=== PATIENT | male | born 1945 | race African-American/Black ===

== ENCOUNTER 2019-10-11 08:05 | Observation (INO) ==
[2019-10-11 10:08] LABS: Basophils % 0.3 % (0.0-0.8); Eosinophils % 0.4 % (0.00-10.9); Hematocrit 34.8 VOL% (42.0-52.0); Hemoglobin 10.9 GM/DL (14.0-18.0); Immature Granulocytes % 0.4 %; Immature Granulocytes Absolute 0.03 #; Lymphocytes # 0.6 10*3/uL (1.4-4.0); Lymphocytes % 9.5 % (21.2-54.2); Mean Corpuscular HGB Conc 31.3 GM/DL (32-36); Mean Corpuscular Volume 100.3 FL (87-102); Mean Platelet Volume 10.8 FL (9.6-12.0); Neutrophils % 71.4 % (38.7-73.9); Platelet Count 281 T/CUMM (130-400); Red Blood Count 3.47 MC/CUMM (3.8-5.5); Red Cell Distribution Width 15.7 % (9.3-17.3); White Blood Count 6.7 T/CUMM (4-12)
[2019-10-11 10:28] LABS: Eosinophils 1 % (0-10); Hypochromasia 1+; Lymphocytes 9 % (20-55); Ovalocytes Slight; Platelet Estimate Adequate; Segmented Neutrophils 77 % (50-85); Total Cells Counted 100
[2019-10-11 10:29] LABS: Bilirubin,Total 0.9 MG/DL (0.2-1.0); Osmolality,Calculated 298.4 MOS/KG (273-304); Total Protein 7.1 G/DL (6.4-8.3)
[2019-10-11] MEDS ORDERED: PROMETHAZINE 25 MG/1 ML VIAL IM PRN (13:15)
[2019-10-11] MEDS ORDERED: ONDANSETRON 4 MG/2 ML VIAL IV PRN (13:15)
[2019-10-11] MEDS ORDERED: ACETAMINOPHEN 325 MG TABLET PO PRN (13:15)
[2019-10-11] MEDS ORDERED: LEVOFLOXACIN INJ 750 MG in PREMIX 1 EACH IV ONE (13:30)
[2019-10-11] MEDS ORDERED: traZODone 50 MG TABLET PO PRN (16:37)
[2019-10-11] MEDS ORDERED: POLYETHYLENE GLYCOL POWDER 17 GM PACK PO PRN (16:37)
[2019-10-11] MEDS: CALCIUM ACETATE 667 MG CAPSULE PO SCH (17:05)
[2019-10-11] MEDS: ALBUTEROL/IPRATROPIUM 3 ML NEB RESP TX SCH (19:32)
[2019-10-11] MEDS: ISOSORBIDE MONONITRATE 30 MG TABLET PO SCH (21:05)
[2019-10-11] MEDS: carvediloL 6.25 MG TABLET PO SCH (21:06)
[2019-10-12] MEDS: ALBUTEROL/IPRATROPIUM 3 ML NEB RESP TX SCH ×2 (01:00→07:30)
[2019-10-12 05:30] LABS: Basophils % 0.3 % (0.0-0.8); Eosinophils % 0.3 % (0.00-10.9); Hematocrit 33.9 VOL% (42.0-52.0); Hemoglobin 10.6 GM/DL (14.0-18.0); Immature Granulocytes % 0.6 %; Immature Granulocytes Absolute 0.04 #; Lymphocytes # 0.6 10*3/uL (1.4-4.0); Lymphocytes % 9.3 % (21.2-54.2); Mean Corpuscular HGB Conc 31.3 GM/DL (32-36); Mean Corpuscular Volume 100.3 FL (87-102); Mean Platelet Volume 11.3 FL (9.6-12.0); Monocytes % 16.5 % (1.7-12.7); Platelet Count 296 T/CUMM (130-400); Red Blood Count 3.38 MC/CUMM (3.8-5.5); Red Cell Distribution Width 15.7 % (9.3-17.3); White Blood Count 6.8 T/CUMM (4-12)
[2019-10-12 05:57] LABS: Albumin 1.9 G/DL (3.4-5.0); Calcium 8.2 MG/DL (8.5-10.1); Osmolality,Calculated 298.5 MOS/KG (273-304); Risk Ratio 2.73; Total Protein 7.1 G/DL (6.4-8.3); VLDL CHOLESTEROL 15.4 MG/DL
[2019-10-12 06:11] LABS: Eosinophils 1 % (0-10); Lymphocytes 12 % (20-55); Metamyelocytes 1 %; Segmented Neutrophils 68 % (50-85); Total Cells Counted 100
[2019-10-12 06:13] LABS: Hypochromasia 2+; Platelet Estimate Normal
[2019-10-12 06:14] LABS: Target Cells Few
[2019-10-12] MEDS: CALCIUM ACETATE 667 MG CAPSULE PO SCH ×2 (08:00→12:54)
[2019-10-12] MEDS ORDERED: ASPIRIN EC 81 MG TABLET PO SCH (09:00)
[2019-10-12] MEDS ORDERED: FENOFIBRATE 48 MG TABLET PO SCH (09:00)
[2019-10-12] MEDS ORDERED: COLCHICINE 0.6 MG CAPSULE PO SCH (09:00)
[2019-10-12] MEDS ORDERED: RANITIDINE 150 MG TABLET PO SCH (09:00)
[2019-10-12] MEDS ORDERED: MULTIVITAMIN (CENTRUM) TABLET PO SCH (09:00)
[2019-10-12] MEDS ORDERED: PANTOPRAZOLE 40 MG TABLET PO SCH (09:00)
[2019-10-12] MEDS ORDERED: FLUTICASONE 50 MCG NASAL SPRAY 16 GM BOTTLE BOTH NARES SCH (09:00)
[2019-10-12] MEDS: ISOSORBIDE MONONITRATE 30 MG TABLET PO SCH (12:56)
[2019-10-12] MEDS: carvediloL 6.25 MG TABLET PO SCH (12:56)
[2019-10-12 13:20] VITALS: BP 95/51
[2019-10-13] MEDS ORDERED: CLOPIDOGREL 75 MG TABLET PO SCH (09:00)
[2019-10-13] MEDS ORDERED: LEVOFLOXACIN INJ 500 MG in PREMIX 1 EACH IV SCH (14:00)
== END 2019-10-12 15:58 | disposition home or self-care (01) ==
LOC: N.EDINP 08:05 → N.ED 08:05 → N.2W 14:50
PROVIDERS: ADMIT Hospitalist; ATTEND Hospitalist

== ENCOUNTER 2019-10-18 10:32 | Observation (INO) ==
[2019-10-18 11:52] LABS: Basophils % 0.4 % (0.0-0.8); Eosinophils % 0.4 % (0.00-10.9); Immature Granulocytes % 0.4 %; Immature Granulocytes Absolute 0.02 #; Lymphocytes # 0.5 10*3/uL (1.4-4.0); Lymphocytes % 9.2 % (21.2-54.2); Mean Corpuscular HGB Conc 31.6 GM/DL (32-36); Mean Corpuscular Volume 97.9 FL (87-102); Mean Platelet Volume 11.3 FL (9.6-12.0); Neutrophils % 71.6 % (38.7-73.9); Platelet Count 223 T/CUMM (130-400); Red Blood Count 3.88 MC/CUMM (3.8-5.5); Red Cell Distribution Width 15.3 % (9.3-17.3); White Blood Count 5.5 T/CUMM (4-12)
[2019-10-18 12:03] LABS: INR 1.4; PT Patient Result 14.9 SECS (9.6-12.2); Partial Thromboplastin Time 36.7 SECS (20.8-36.0)
[2019-10-18 12:14] LABS: Alanine Aminotransferase 19 U/L (16-61); Albumin 1.9 G/DL (3.4-5.0); Alkaline Phosphatase 81 U/L (45-117); Amylase 104 U/L (25-115); Aspartate Amino Transferase 42 U/L (0-37); Blood Urea Nitrogen 63 MG/DL (7-18); Calcium 7.8 MG/DL (8.5-10.1); Estimated Glom Filtration Rate 6 ML/MIN; Glucose 66 MG/DL (74-106); Total Protein 7.3 G/DL (6.4-8.3); Troponin I < 0.015 NG/ML (0.00-0.045)
[2019-10-18 12:54] LABS: Platelet Estimate Adequate
[2019-10-18] MEDS ORDERED: DOCUSATE SODIUM 100 MG CAPSULE PO PRN (12:57)
[2019-10-18] MEDS ORDERED: ACETAMINOPHEN 325 MG TABLET PO PRN (12:57)
[2019-10-18 14:17] LABS: INR 1.4; PT Patient Result 14.9 SECS (9.6-12.2)
[2019-10-18] MEDS ORDERED: traZODone 50 MG TABLET PO PRN (15:17)
[2019-10-18] MEDS ORDERED: SODIUM POLYSTYRENE SULFATE 15 GM/60 ML BOTTLE PO STA (16:07)
[2019-10-18] MEDS: CALCIUM ACETATE 667 MG CAPSULE PO SCH (16:57)
[2019-10-18 17:02] LABS: Basophils % 0.3 % (0.0-0.8); Eosinophils % 0.5 % (0.00-10.9); Hemoglobin 10.5 GM/DL (14.0-18.0); Immature Granulocytes % 0.3 %; Immature Granulocytes Absolute 0.02 #; Lymphocytes # 0.6 10*3/uL (1.4-4.0); Lymphocytes % 10.8 % (21.2-54.2); Mean Corpuscular HGB Conc 30.9 GM/DL (32-36); Mean Corpuscular Volume 100.9 FL (87-102); Monocytes % 20.6 % (1.7-12.7); Neutrophils % 67.5 % (38.7-73.9); Platelet Count 227 T/CUMM (130-400); Red Blood Count 3.37 MC/CUMM (3.8-5.5); Red Cell Distribution Width 15.1 % (9.3-17.3); White Blood Count 5.9 T/CUMM (4-12)
[2019-10-18 17:41] LABS: Lymphocytes 14 % (20-55); Platelet Estimate Adequate; Segmented Neutrophils 69 % (50-85); Total Cells Counted 100
[2019-10-18] MEDS: ISOSORBIDE MONONITRATE 30 MG TABLET PO SCH (21:15)
[2019-10-18] MEDS: carvediloL 6.25 MG TABLET PO SCH (21:15)
[2019-10-19 05:06] VITALS: BP 97/59
[2019-10-19 05:47] LABS: Calcium 7.5 MG/DL (8.5-10.1); Osmolality,Calculated 295.7 MOS/KG (273-304)
[2019-10-19] MEDS ORDERED: MULTIVITAMIN (CENTRUM) TABLET PO SCH (09:00)
[2019-10-19] MEDS ORDERED: RANITIDINE 150 MG TABLET PO SCH (09:00)
[2019-10-19] MEDS ORDERED: PANTOPRAZOLE 40 MG TABLET PO SCH (09:00)
[2019-10-19] MEDS ORDERED: ASPIRIN EC 81 MG TABLET PO SCH (09:00)
[2019-10-19] MEDS ORDERED: POLYETHYLENE GLYCOL POWDER 17 GM PACK PO PRN (09:00)
[2019-10-19] MEDS ORDERED: FLUTICASONE 50 MCG NASAL SPRAY 16 GM BOTTLE BOTH NARES SCH (09:00)
[2019-10-19] MEDS ORDERED: COLCHICINE 0.6 MG CAPSULE PO SCH (09:00)
[2019-10-19] MEDS ORDERED: NON-FORMULARY MEDICATION (Fenofibrate 54 MG) PO SCH (09:00)
[2019-10-19] MEDS: CALCIUM ACETATE 667 MG CAPSULE PO SCH ×2 (09:42→12:15)
[2019-10-19] MEDS ORDERED: CLOPIDOGREL 75 MG TABLET PO SCH (15:17)
[2019-10-19] MEDS: carvediloL 6.25 MG TABLET PO SCH (16:09)
[2019-10-19] MEDS: ISOSORBIDE MONONITRATE 30 MG TABLET PO SCH (16:10)
== END 2019-10-19 16:10 | disposition home or self-care (01) ==
LOC: N.EDINP 10:32 → N.ED 10:32 → N.5E 13:14
PROVIDERS: ADMIT Hospitalist; ATTEND Hospitalist

== ENCOUNTER 2019-11-05 16:21 | Inpatient (IN) ==
[2019-11-05 17:26] LABS: Basophils % 0.1 % (0.0-0.8); Eosinophils # 0.1 10*3/uL (0.0-0.87); Eosinophils % 0.8 % (0.00-10.9); Hemoglobin 10.5 GM/DL (14.0-18.0); Immature Granulocytes % 0.4 %; Immature Granulocytes Absolute 0.03 #; Lymphocytes # 0.6 10*3/uL (1.4-4.0); Lymphocytes % 7.8 % (21.2-54.2); Mean Corpuscular HGB Conc 30.9 GM/DL (32-36); Mean Corpuscular Volume 99.1 FL (87-102); Mean Platelet Volume 10.9 FL (9.6-12.0); Monocytes % 17.5 % (1.7-12.7); Neutrophils % 73.4 % (38.7-73.9); Platelet Count 272 T/CUMM (130-400); Red Blood Count 3.43 MC/CUMM (3.8-5.5); Red Cell Distribution Width 14.8 % (9.3-17.3); White Blood Count 7.3 T/CUMM (4-12)
[2019-11-05 17:35] LABS: INR 1.3; PT Patient Result 13.7 SECS (9.6-12.2); Partial Thromboplastin Time 41.1 SECS (20.8-36.0)
[2019-11-05 18:08] LABS: Albumin 2.1 G/DL (3.4-5.0); Calcium 7.9 MG/DL (8.5-10.1); Osmolality,Calculated 284.2 MOS/KG (273-304); Total Protein 7.3 G/DL (6.4-8.3)
[2019-11-05 19:38] LABS: Hypochromasia 2+; Lymphocytes 7 % (20-55); Platelet Estimate Normal; Segmented Neutrophils 78 % (50-85); Total Cells Counted 100
[2019-11-05 19:39] LABS: Anisocytosis 2+; Macrocytosis 2+; Ovalocytes 1+; Poikilocytosis 1+; Polychromasia 1+
[2019-11-05] MEDS ORDERED: POLYETHYLENE GLYCOL POWDER 17 GM PACK PO PRN (19:54)
[2019-11-05 20:13] LABS: Basophils % 0.2 % (0.0-0.8); Eosinophils % 0.6 % (0.00-10.9); Hemoglobin 10.8 GM/DL (14.0-18.0); Immature Granulocytes % 0.5 %; Immature Granulocytes Absolute 0.03 #; Lymphocytes # 0.5 10*3/uL (1.4-4.0); Lymphocytes % 7.7 % (21.2-54.2); Mean Corpuscular HGB Conc 30.9 GM/DL (32-36); Mean Corpuscular Volume 99.4 FL (87-102); Mean Platelet Volume 10.8 FL (9.6-12.0); Monocytes % 18.5 % (1.7-12.7); Neutrophils % 72.5 % (38.7-73.9); Platelet Count 230 T/CUMM (130-400); Red Blood Count 3.52 MC/CUMM (3.8-5.5); Red Cell Distribution Width 14.9 % (9.3-17.3); White Blood Count 6.3 T/CUMM (4-12)
[2019-11-05] MEDS: ISOSORBIDE MONONITRATE 30 MG TABLET PO SCH (20:26)
[2019-11-05] MEDS: carvediloL 6.25 MG TABLET PO SCH (20:26)
[2019-11-05] MEDS: traZODone 50 MG TABLET PO PRN (20:26)
[2019-11-05 21:31] LABS: Lymphocytes 11 % (20-55); Segmented Neutrophils 78 % (50-85); Total Cells Counted 100
[2019-11-05 21:32] LABS: Hypochromasia 2+; Macrocytosis 2+; Platelet Estimate Normal
[2019-11-05 21:33] LABS: Anisocytosis Slight; Ovalocytes Few; Polychromasia 1+; Schistocytes Few
[2019-11-05 21:34] LABS: Toxic Granulation 1+
[2019-11-06 08:02] LABS: INR 1.3; PT Patient Result 14.1 SECS (9.6-12.2)
[2019-11-06] MEDS: BUDESONIDE/FORMOTEROL 160-4.5 INHALER 6 GM INH SCH (08:25)
[2019-11-06] MEDS: FLUTICASONE 50 MCG NASAL SPRAY 16 GM BOTTLE BOTH NARES SCH (08:25)
[2019-11-06] MEDS: ASPIRIN EC 81 MG TABLET PO SCH (08:26)
[2019-11-06] MEDS: CALCIUM ACETATE 667 MG CAPSULE PO SCH ×3 (08:26→18:23)
[2019-11-06] MEDS: RANITIDINE 150 MG TABLET PO SCH (08:26)
[2019-11-06] MEDS: carvediloL 6.25 MG TABLET PO SCH (08:26)
[2019-11-06] MEDS: ISOSORBIDE MONONITRATE 30 MG TABLET PO SCH (08:26)
[2019-11-06] MEDS: COLCHICINE 0.6 MG CAPSULE PO SCH (08:26)
[2019-11-06] MEDS: MULTIVITAMIN (CENTRUM) TABLET PO SCH (08:26)
[2019-11-06] MEDS: FENOFIBRATE 48 MG TABLET PO SCH (12:13)
[2019-11-06] MEDS ORDERED: SODIUM BICARBONATE 50 MEQ/50 ML SYRINGE IV ONE (14:49)
[2019-11-06] MEDS ORDERED: EPINEPHrine 1 MG/10 ML SYRINGE ONE (14:49)
[2019-11-06] MEDS ORDERED: VECURONIUM 10 MG VIAL IV ONE (14:55)
[2019-11-06 15:21] LABS: Amylase,Body Fluid 40 U/L; Glucose,Pleural Fluid 67 MG/DL; LDH,Body Fluid 186 U/L; Total Protein,Body Fluid 2.5 G/DL; Triglycerides,Body Fluid 15 MG/DL
[2019-11-06] MEDS ORDERED: NOREPINEPHRINE 8 MG in SODIUM CHLORIDE 0.9% 242 ML IV PRN (16:28)
[2019-11-06] MEDS: LIDOCAINE 5% PATCH TRANSDERM SCH (16:38)
[2019-11-06] MEDS: traZODone 50 MG TABLET PO PRN (20:33)
[2019-11-06 20:53] LABS: Lymphocytes,Pleural Fluid 82 %; Monocytes,Pleural Fluid 9 %; Neutrophils,Pleural Fluid 9 %
[2019-11-06 20:54] LABS: RBC,Pleural Fluid 51631 T/CUMM
[2019-11-07 05:04] LABS: Basophils % 0.1 % (0.0-0.8); Eosinophils % 0.1 % (0.00-10.9); Hematocrit 33.4 VOL% (42.0-52.0); Hemoglobin 10.5 GM/DL (14.0-18.0); Immature Granulocytes % 0.4 %; Immature Granulocytes Absolute 0.03 #; Lymphocytes # 0.5 10*3/uL (1.4-4.0); Lymphocytes % 5.9 % (21.2-54.2); Mean Corpuscular HGB Conc 31.4 GM/DL (32-36); Mean Corpuscular Volume 99.1 FL (87-102); Mean Platelet Volume 11.4 FL (9.6-12.0); Monocytes % 12.9 % (1.7-12.7); Neutrophils % 80.6 % (38.7-73.9); Platelet Count 236 T/CUMM (130-400); Red Blood Count 3.37 MC/CUMM (3.8-5.5); Red Cell Distribution Width 14.7 % (9.3-17.3); White Blood Count 7.7 T/CUMM (4-12)
[2019-11-07 05:43] LABS: Osmolality,Calculated 295.1 MOS/KG (273-304)
[2019-11-07 06:51] VITALS: BP 98/68
[2019-11-07] MEDS: CALCIUM ACETATE 667 MG CAPSULE PO SCH ×3 (08:26→17:25)
[2019-11-07] MEDS: COLCHICINE 0.6 MG CAPSULE PO SCH (08:26)
[2019-11-07] MEDS: FENOFIBRATE 48 MG TABLET PO SCH (08:26)
[2019-11-07] MEDS: RANITIDINE 150 MG TABLET PO SCH (08:26)
[2019-11-07] MEDS: MULTIVITAMIN (CENTRUM) TABLET PO SCH (08:27)
[2019-11-07] MEDS: BUDESONIDE/FORMOTEROL 160-4.5 INHALER 6 GM INH SCH (08:27)
[2019-11-07] MEDS: FLUTICASONE 50 MCG NASAL SPRAY 16 GM BOTTLE BOTH NARES SCH (08:27)
[2019-11-07] MEDS: ASPIRIN EC 81 MG TABLET PO SCH (08:31)
[2019-11-07] MEDS: LIDOCAINE 5% PATCH TRANSDERM SCH (08:35)
[2019-11-07] MEDS: traZODone 50 MG TABLET PO PRN (20:10)
[2019-11-08] MEDS: CALCIUM ACETATE 667 MG CAPSULE PO SCH ×3 (08:29→16:46)
[2019-11-08] MEDS: COLCHICINE 0.6 MG CAPSULE PO SCH (08:30)
[2019-11-08] MEDS: LIDOCAINE 5% PATCH TRANSDERM SCH (08:30)
[2019-11-08] MEDS: ASPIRIN EC 81 MG TABLET PO SCH (08:30)
[2019-11-08] MEDS: MULTIVITAMIN (CENTRUM) TABLET PO SCH (08:30)
[2019-11-08] MEDS: FENOFIBRATE 48 MG TABLET PO SCH (08:30)
[2019-11-08] MEDS: RANITIDINE 150 MG TABLET PO SCH (08:30)
[2019-11-08] MEDS: BUDESONIDE/FORMOTEROL 160-4.5 INHALER 6 GM INH SCH (08:32)
[2019-11-08] MEDS: FLUTICASONE 50 MCG NASAL SPRAY 16 GM BOTTLE BOTH NARES SCH (08:32)
== END 2019-11-09 01:05 | disposition expired | DRG 432 ==
LOC: N.ED 16:21 → N.EDINP 16:21 → N.CC 18:37 → SUATTDRO 11-06 13:58
PROVIDERS: ADMIT Internal Medicine; ATTEND Internal Medicine